=== PATIENT | male | born 1960 | race Caucasian/White ===

== ENCOUNTER 2016-08-12 16:42 | Emergency (ER) | payer BC ==
[2016-08-12 16:42] VITALS: BMI 30.4
[2016-08-12 16:48] VITALS: BP 166/97; PULSE 67; RESP 18; TEMP 97.6; O2SAT 100
[2016-08-12] MEDS ORDERED: Oxycodone/Acetaminophen 5/325 mg Tab PO STA (17:02)
--- NOTE | 2016-08-12 17:02 | C.PDOC ---
History Of Present Illness Patient is a 55 y/o male that presents to the ED for evaluation of left lower toothache since last night. Otherwise, denies any fever, chills, gum swelling, or any other associated symptoms at this time. Time Seen by Provider: 08/12/16 16:57 Chief Complaint (Nursing): Dental Pain History Per: Patient History/Exam Limitations: no limitations Onset/Duration Of Symptoms: Days (1) Current Symptoms Are (Timing): Still Present Quality: Positive for: "Pain" Recent travel outside of the [place]: No Additional History Per: Patient Past Medical History Reviewed: Historical Data, Nursing Documentation, Vital Signs Vital Signs: Last Vital Signs Temp 97.6 F 08/12/16 16:45 Pulse 67 08/12/16 16:45 Resp 18 08/12/16 16:45 BP 166/97 H 08/12/16 16:45 Pulse Ox 100 08/12/16 17:02 Surgical History: Denies: Pacemaker Family History: States: No Known Family Hx - Social History Hx Alcohol Use: No Hx Substance Use: No Review Of Systems Except As Marked, All Systems Reviewed And Found Negative. Constitutional: Negative for: Fever, Chills ENT: Positive for: Mouth Pain (toothache). Negative for: Mouth Swelling Physical Exam - Physical Exam Appears: Non-toxic, No Acute Distress Skin: Normal Color, Warm, Dry Head: Atraumatic, Normacephalic, No Swelling (no swelling of face) Oral Mucosa: Moist Tongue: Normal Appearing Lips: Normal Appearing Teeth: Caries, Tender To Palpation (left lower 1st premolar) Gingiva: No Erythema, No Swelling, No Tender, No Bleeding Neurological/Psych: Oriented x3, Normal Speech, Normal Cognition ED Course And Treatment O2 Sat by Pulse Oximetry: 100 (on RA) Pulse Ox Interpretation: Normal Progress Note: Patient was given Penicillin VK, and Percocet. On re-eval, patient reports improvement of pain. Patient is being discharged home and is instructed to follow up with dentist in 1-2 days. Disposition - Disposition Disposition: HOME/ ROUTINE Disposition Time: 17:00 Condition: STABLE Additional Instructions: Follow up with Dentist within 1-2 days. return to ED if feel worse. Prescriptions: Penicillin VK [Pen-Vee K] 500 mg PO Q6 #28 tab oxyCODONE/Acetaminophen [Percocet 5/325 mg Tab] 1 tab PO QID PRN #20 tab PRN Reason: Pain Instructions: Toothache (ED) - Clinical Impression Clinical Impression: Toothache - PA / RN SPINE / Resident Statement MD/DO has reviewed & agrees with the documentation as recorded. - Scribe Statement The provider has reviewed the documentation as recorded by the Scribe Vicky Thrasher All medical record entries made by the Christianoibe were at my direction and personally dictated by me. I have reviewed the chart and agree that the record accurately reflects my personal performance of the history, physical exam, medical decision making, and the department course for this patient. I have also personally directed, reviewed, and agree with the discharge instructions and disposition.
[2016-08-12] MEDS ORDERED: Oxycodone/Acetaminophen 5/325 mg Tab ONE (17:06)
== END 2016-08-12 17:10 | disposition home or self-care (01) ==
LOC: C.ER 16:42
DX: K08.89 Other specified disorders of teeth and supporting structures (principal)